=== PATIENT | female | born 1950 | race Caucasian/White ===

== ENCOUNTER → 2019-03-14 | Outpatient (CLI) | payer BC ==
--- NOTE | 2019-03-14 16:59 | PCVCIMAG ---
APPROVED REPORT Study performed: 03/14/2019 14:52:57 EXAM: Comprehensive 2D, Doppler, and color-flow Echocardiogram Patient Location: Echo lab Room #: 3Status: routine BSA: 1.73 HR: 75 bpmBP: 148/82 mmHg Rhythm: NSR Other Information Study Quality: Adequate Risk Factors: Cardiac Risk Factors: Hyperlipidemia, HTN Indications Abnormal ECG Pre-Op 2D Dimensions IVSd: 9.48 (7-11mm)LVOT Diam: 20.00 (18-24mm) LVDd: 36.92 mm PWd: 9.30 (7-11mm)Ascending Ao: 28.49 (22-36mm) LVDs: 20.84 (25-40mm) Left Atrium: 29.98 (27-40mm) Aortic Root: 27.56 mm LV Single Plane 4CH: 69.34 % LV Single Plane 2CH: 65.38 % Biplane EF: 67.9 % Volumes Left Atrial Volume (Systole) Single Plane 4CH: 42.20 mLSingle Plane 2CH: 41.74 mL LA ESV Index: 28.00 mL/m2 Aortic Valve AoV Peak Jeff.: 1.70 m/s AO Peak Gr.: 11.56 mmHgLVOT Max P.97 mmHg LVOT Max V: 1.00 m/s AGUS Vmax: 1.81 cm2 AI Vmax: 4.62 m/s AI [place]: 3.27 m/s2 AI PHT: 410.32 ms Mitral Valve E/A Ratio: 0.7 MV Decel. Time: 201.84 ms MV E Max Jeff.: 0.85 m/s MV A Jfef.: 1.16 m/s IVRT: 76.12 ms TDI E/Lateral E': 12.14E/Medial E': 21.25 Medial E' Jeff.: 0.04 m/s Lateral E' Jeff.: 0.07 m/s Pulmonary Valve PV Peak Jeff.: 1.09 m/sPV Peak Gr.: 4.71 mmHg Pulmonary Vein P Vein S: 0.59 m/sP Vein A: 0.71 m/s P Vein D: 0.31 m/sP Vein A Dur.: 141.9 msec P Vein S/D Ratio: 1.90 Tricuspid Valve TR Peak Jeff.: 2.54 m/sRAP Estimate: 7.00 mmHg TR Peak Gr.: 25.82 mmHg PA Pressure: 33.00 mmHg Left Ventricle The left ventricle is normal size. There is normal LV segmental wall motion. There is normal left ventricular wall thickness. Left ventricular systolic function is normal. The left ventricular ejection fraction is within the normal range. LVEF is 65-70%. Mild diastolic dysfunction is present (impaired relaxation pattern). Right Ventricle The right ventricle is normal size. The right ventricular systolic function is normal. Atria The left atrium size is normal. The right atrium size is normal. Aortic Valve The aortic valve is normal in structure. Mild to moderate aortic regurgitation. There is no aortic valvular stenosis. Mitral Valve The mitral valve is normal in structure. Mild mitral regurgitation. No evidence of mitral valve stenosis. Tricuspid Valve The tricuspid valve is normal in structure. Mild tricuspid regurgitation. Pulmonary artery pressure is 26 mmHg. Pulmonic Valve The pulmonary valve is normal in structure. There is no pulmonic valvular regurgitation. Great Vessels The aortic root is normal in size. The ascending aorta is normal in size. IVC is normal in size and collapses >50% with inspiration. Pericardium There is no pericardial effusion. <Conclusion> The left ventricle is normal size. LVEF is 65-70%. The aortic valve is normal in structure. Mild to moderate aortic regurgitation. The mitral valve is normal in structure. Mild mitral regurgitation. The tricuspid valve is normal in structure. Mild tricuspid regurgitation. Pulmonary artery pressure is 26 mmHg. The pulmonary valve is normal in structure. There is no pericardial effusion.
== END | disposition home or self-care (01) ==
LOC: PCVCIMAG 14:44
PROVIDERS: ATTEND Internal Medicine
DX: Z01.818 Encounter for other preprocedural examination (principal); R94.31 Abnormal electrocardiogram [ECG] [EKG]; I08.3 Combined rheumatic disorders of mitral, aortic and tricuspid valves; E78.5 Hyperlipidemia, unspecified; Z87.891 Personal history of nicotine dependence
CPT/HCPCS: 93306

== ENCOUNTER → 2019-03-20 | Outpatient (CLI) | payer BC ==
[~2019-03-20] MED LIST: REGADENOSON 0.4 MG/5 ML DISP.SYRIN. IV ONE
--- NOTE | 2019-03-20 16:46 | PCVCIMAG ---
APPROVED REPORT Imaging Protocol: Rest Tc-99m/Stress Tc-99m 1 day Study performed: 03/20/2019 14:18:43 Indication: Abnormal EKG, Pre-Operative CV evaluation Patient Location: Out-Patient Stress Nurse: Martina Hodge RN, Isabella Virgen RN NH Tech:Mary STEVE AndradeMT Ht: 5 ft 4 in Wt: 150 lbs BSA: 1.73 m2 HR: 67 bpm BP: 167/75 mmHg BMI: 25.74 Rhythm: Normal Sinus Rhythm Medical History Medical History: HTN, Hyperlipidemia, Former Smoker Medications: ASA, Amlodipine, Zocor Allergies: No known drug allergies Cardiac Risk Factors: Age Pretest Chest Pain Characteristics: No chest pain Exercise History: Indeterminate Physical Disabilities: Needs knee replacement Resting Data Rest SPECT myocardial perfusion imaging was performed in supine position 45 minutes following the intravenous injection of 10 mCi of Tc-99m Sestamibi. Time of rest injection: 1330 Date: 03/20/2019 Administration Route: IV Administration Site: Right AC Pharmacologic Stress Pharmacologic stress test was performed by injecting Regadenoson 0.4 mg IV push over 10-15 seconds immediately followed by the intravenous injection of 35.1 mCi of Tc-99m Sestamibi. Time of stress injection: 1500 Date: 03/20/2019 Administration Route: IV Administration Site: Right AC Gated Stress SPECT was performed 45 minutes after stress injection. The images were gated to evaluate regional wall motion and calculate left ventricular ejection fraction. Stress Test Details Stress Test: Pharmacologic stress testing performed using 0.4 mg of regadenoson per 5 mL given IV over 10 seconds. Reason for pharmacologic stress test: physical limitation. HRMax Heart Rate (APMHR): 152 bpm Resting HR: 67 bpmTarget HR (85% APMHR): 129 bpm Max HR Achieved: 85 bpm % of APMHR: 55 Recovery HR: 82 bpm BP Resting BP: 167/75 mmHg Max BP: 151/70 mmHg Recovery BP: 134/63 mmHg ECG Resting ECG: Sinus Rhythm, Septal infarct Stress ECG: Normal Sinus Rhythm Arrhythmia: None Recovery ECG: Normal Sinus Rhythm Clinical Reason for Termination: Completed protocol Stress Symptoms: Dyspnea Symptoms resolved during recovery. Stress ECG Conclusion 1. Adequate response to intravenous Lexiscan 2. Inadequate heart rate for ECG diagnosis Study Data Post stress, the left ventricular ejection was 83%.. SSS: 0 SRS: 15 SDS: 0 TID = 0.71. Perfusion There is a medium area of mildly reduced uptake in the mid and apical segment of the anterior wall which is seen on the stress images as well as the resting images. This area thickens and moves normally and is most consistent with attenuation artifact. Wall Motion Normal left ventricular wall motion. Nuclear Conclusion ECG Findings: non-diagnostic Clinical Findings: negative for ischemia Nuclear Findings: negative for ischemia Exercise Capacity: not assessed Left Ventricular Function: normal 1. Low risk study 2. Post exercise left ventricular ejection fraction of 83% with normal wall motion <Conclusion> 1. Adequate response to intravenous Lexiscan 2. Inadequate heart rate for ECG diagnosis
== END | disposition home or self-care (01) ==
LOC: PCVCIMAG 13:19
PROVIDERS: ATTEND Internal Medicine
DX: R94.31 Abnormal electrocardiogram [ECG] [EKG] (principal); E78.5 Hyperlipidemia, unspecified; Z87.891 Personal history of nicotine dependence
CPT/HCPCS: 78452; 93017; A9500; J2785